=== PATIENT | male | born 1990 | race African-American/Black ===

== ENCOUNTER 2018-03-08 09:38 | Emergency (ER) | payer OTHER ==
[~2018-03-08] VITALS: Ht 172.7 cm; Wt 66.2 kg
[2018-03-08 10:03] VITALS: BP 96/70
[2018-03-08] MEDS ORDERED: NAPHCON-A EYE D15 ML BOTH EYES (11:17)
== END 2018-03-08 11:33 | disposition home or self-care (01) ==
LOC: EME 09:38
DX: H11.32 Conjunctival hemorrhage, left eye (principal)
CPT/HCPCS: 99281; 99283